=== PATIENT | male | born 1950 | race Caucasian/White ===

== ENCOUNTER → 2021-02-15 | Outpatient (CLI) | payer MEDICARE, BC ==
--- NOTE | 2021-02-15 13:41 | MM ---
Reason for exam: clinical finding. Baseline mammogram. Physical Findings: Nurse did not find any significant physical abnormalities on exam. MG 3D Diag Mammo W/Cad TAMMY Bilateral CC and MLO view(s) were taken. The breast tissue is almost entirely fat. Focal asymmetry left subareolar breast. These results were verbally communicated with the patient and result sheet given to the patient on 02/15/21. ASSESSMENT: Incomplete: need additional imaging evaluation, BI-RAD 0 RECOMMENDATION: Ultrasound of the left breast.
--- NOTE | 2021-02-15 13:46 | USB ---
Reason for exam: additional evaluation requested from abnormal screening. US Breast Limited LT Left limited breast ultrasound including focal area of concern, retroareolar and axilla demonstrates a 1.8cm hypoechoic lesion at the retroareolar posterior nipple, most likely gynecomastia. These results were verbally communicated with the patient and result sheet given to the patient on 02/15/21. ASSESSMENT: Benign, BI-RAD 2 RECOMMENDATION: Clinical management of the left breast. Manage patient on a clinical basis. Return to imaging as clinically indicated.
== END | disposition home or self-care (01) ==
LOC: RADMAMWWP 10:19
PROVIDERS: ATTEND Family Medicine
DX: N64.89 Other specified disorders of breast (principal)
CPT/HCPCS: 77066; 76642; G0279; 77062

== ENCOUNTER 2022-05-10 09:32 | Observation (INO) | payer MEDICARE, BC ==
[2022-05-10] MEDS ORDERED: ASPIRIN 81 MG PO STA (09:57)
[2022-05-10] MEDS ORDERED: NITROGLYCERIN OINT 1 INCH/GM PACKET TOPICAL STA (09:57)
--- NOTE | 2022-05-10 10:01 | ED ---
General Adult HPI - General Chief complaint: Shortness of Breath Stated complaint: EWELINA Time Seen by Provider: 05/10/22 09:45 Source: patient, RN notes reviewed, old records reviewed Mode of arrival: wheelchair Limitations: no limitations - History of Present Illness Initial comments: This is a 71-year-old male with a past medical history significant for bypass surgery, hypertension and high cholesterol. Patient states last night he started having central chest pain and shortness of breath. Patient states that now he is mildly short of breath and still has chest pain but it seems to be only with deep breathing at this time. Patient states last night the chest pain was constant and it was a heaviness sensation. Patient denies any fever chills or cough. Patient denies any swelling to the legs or calf tenderness. Patient denies any palpitation. Patient denies any lightheadedness or dizziness per patient denies headache patient denies numbness weakness. Patient denies any abdominal pain. Patient denies nausea vomiting. Patient denies any radiation of the pain. Patient denies any diaphoretic episodes. - Related Data Home Medications Medication Instructions Recorded Confirmed Ascorbic Acid [Vitamin C] 1,000 mg PO PC-BRKFST 05/10/22 05/10/22 Cholecalciferol [Vitamin D3 (25 25 mcg PO PC-BRKFST 05/10/22 05/10/22 Mcg = 1000 Iu)] Ginkgo Biloba [place] Extract [Ginkgo 125 mg PO PC-BRKFST 05/10/22 05/10/22 Biloba] Metoprolol Succinate (ER) [Toprol 50 mg PO PC-BRKFST 05/10/22 05/10/22 Xl] Multivitamins, Thera [Multivitamin 1 tab PO PC-BRKFST 05/10/22 05/10/22 (formulary)] Pravastatin Sodium [Pravachol] 20 mg PO HS 05/10/22 05/10/22 Ubidecarenone [Coenzyme Q10] 200 mg PO PC-BRKFST 05/10/22 05/10/22 Zinc Gluconate [Zinc] 50 mg PO PC-BRKFST 05/10/22 05/10/22 Allergies Allergy/AdvReac Type Severity Reaction Status Date / Time Penicillins Allergy Joint Verified 05/10/22 10:54 Swelling Review of Systems ROS Statement: Those systems with pertinent positive or pertinent negative responses have been documented in the HPI. ROS Other: All systems not noted in ROS Statement are negative. Past Medical History Past Medical History: Asthma, Coronary Artery Disease (CAD), Hyperlipidemia, Hypertension Additional Past Medical History / Comment(s): aortic aneurysm, scoliosis, lyme disease History of Any Multi-Drug Resistant Organisms: None Reported Past Surgical History: Back Surgery, Coronary Bypass/CABG Past Psychological History: No Psychological Hx Reported Past Alcohol Use History: None Reported Past Drug Use History: None Reported General Exam - General Exam Comments Initial Comments: GENERAL: Patient is well-developed and well-nourished. Patient is nontoxic and well- hydrated and is in mild distress. ENT: Neck is soft and supple. No significant lymphadenopathy is noted. Oropharynx is clear. Moist mucous membranes. Neck has full range of motion without eliciting any pain. EYES: The sclera were anicteric and conjunctiva were pink and moist. Extraocular movements were intact and pupils were equal round and reactive to light. Eyelids were unremarkable. PULMONARY: Unlabored respirations. Good breath sounds bilaterally. No audible rales rhonchi or wheezing was noted. CARDIOVASCULAR: There is a regular rate and rhythm without any murmurs gallops or rubs. ABDOMEN: Soft and nontender with normal bowel sounds. SKIN: Skin is clear with no lesions or rashes and otherwise unremarkable. NEUROLOGIC: Patient is alert and oriented x3. Cranial nerves II through XII are grossly intact. Motor and sensory are also intact. Normal speech, volume and content. Symmetrical smile. MUSCULOSKELETAL: Normal extremities with adequate strength and full range of motion. No lower extremity swelling or edema. No calf tenderness. LYMPHATICS: No significant lymphadenopathy is noted PSYCHIATRIC: Normal psychiatric evaluation. Limitations: no limitations Course Vital Signs 05/10/22 05/10/22 05/10/22 09:33 09:50 09:54 Temperature 97.9 F Pulse Rate 100 96 Pulse Rate [ 92 Mail Inserter ] Respiratory 22 18 Rate Blood Pressure 118/78 123/83 O2 Sat by Pulse 96 96 Oximetry Medical Decision Making - Medical Decision Making EKG shows sinus rhythm with occasional PVC at 91 bpm IL interval 292 QRS is 94 QT interval 355 QTC is 44. Patient's EKG shows ST segment elevation in inferior leads II, III, and F aVF. Currently patient is having no chest pain unless he takes a deep breath I spoke with Dr. Madrid about the EKG and he stated he would see the patient emergency department. Chest x-ray shows no acute abnormality. I was sound physician's and he agreed to admit the patient I wrote admitting orders and consult cardiology - Lab Data Result diagrams: 05/10/22 10:11 05/10/22 10:10 Lab Results 05/10/22 05/10/22 05/10/22 Range/Units 10:10 10:10 10:10 WBC (3.8-10.6) k/uL RBC (4.30-5.90) m/uL Hgb (13.0-17.5) gm/dL Hct (39.0-53.0) % MCV (80.0-100.0) fL MCH (25.0-35.0) pg MCHC (31.0-37.0) g/dL RDW (11.5-15.5) % Plt Count (150-450) k/uL MPV Neutrophils % % Lymphocytes % % Monocytes % % Eosinophils % % Basophils % % Neutrophils # (1.3-7.7) k/uL Lymphocytes # (1.0-4.8) k/uL Monocytes # (0-1.0) k/uL Eosinophils # (0-0.7) k/uL Basophils # (0-0.2) k/uL PT 10.3 (9.0-12.0) sec INR 0.9 (<1.2) APTT 28.2 (22.0-30.0) sec D-Dimer 0.43 (<0.60) mg/L FEU Sodium 134 L (137-145) mmol/L Potassium 4.2 (3.5-5.1) mmol/L Chloride 101 (98-107) mmol/L Carbon Dioxide 22 (22-30) mmol/L Anion Gap 11 mmol/L BUN 13 (9-20) mg/dL Creatinine 0.71 (0.66-1.25) mg/dL Est GFR (CKD-EPI)AfAm >90 (>60 ml/min/1.73 sqM) Est GFR (CKD-EPI)NonAf >90 (>60 ml/min/1.73 sqM) Glucose 146 H (74-99) mg/dL Calcium 9.1 (8.4-10.2) mg/dL Magnesium 1.9 (1.6-2.3) mg/dL Total Bilirubin 1.0 (0.2-1.3) mg/dL AST 26 (17-59) U/L ALT 19 (4-49) U/L Alkaline Phosphatase 64 (38-126) U/L Troponin I <0.012 (0.000-0.034) ng/mL Total Protein 6.9 (6.3-8.2) g/dL Albumin 4.3 (3.5-5.0) g/dL Lipase 45 (23-300) U/L 05/10/22 Range/Units 10:11 WBC 14.8 H (3.8-10.6) k/uL RBC 4.84 (4.30-5.90) m/uL Hgb 15.3 (13.0-17.5) gm/dL Hct 46.8 (39.0-53.0) % MCV 96.6 (80.0-100.0) fL MCH 31.7 (25.0-35.0) pg MCHC 32.8 (31.0-37.0) g/dL RDW 12.6 (11.5-15.5) % Plt Count 183 (150-450) k/uL MPV 8.2 Neutrophils % 78 % Lymphocytes % 14 % Monocytes % 5 % Eosinophils % 1 % Basophils % 0 % Neutrophils # 11.6 H (1.3-7.7) k/uL Lymphocytes # 2.1 (1.0-4.8) k/uL Monocytes # 0.8 (0-1.0) k/uL Eosinophils # 0.2 (0-0.7) k/uL Basophils # 0.0 (0-0.2) k/uL PT (9.0-12.0) sec INR (<1.2) APTT (22.0-30.0) sec D-Dimer (<0.60) mg/L FEU Sodium (137-145) mmol/L Potassium (3.5-5.1) mmol/L Chloride (98-107) mmol/L Carbon Dioxide (22-30) mmol/L Anion Gap mmol/L BUN (9-20) mg/dL Creatinine (0.66-1.25) mg/dL Est GFR (CKD-EPI)AfAm (>60 ml/min/1.73 sqM) Est GFR (CKD-EPI)NonAf (>60 ml/min/1.73 sqM) Glucose (74-99) mg/dL Calcium (8.4-10.2) mg/dL Magnesium (1.6-2.3) mg/dL Total Bilirubin (0.2-1.3) mg/dL AST (17-59) U/L ALT (4-49) U/L Alkaline Phosphatase (38-126) U/L Troponin I (0.000-0.034) ng/mL Total Protein (6.3-8.2) g/dL Albumin (3.5-5.0) g/dL Lipase (23-300) U/L Disposition Clinical Impression: Chest pain Disposition: ADMITTED IP TO THIS HOSP Referrals: Steve Hsieh DO [Primary Care Provider] - 1-2 days Time of Disposition: 11:16
[2022-05-10 10:20] LABS: Basophils % (A) 0 %; Eosinophils # (A) 0.2 k/uL (0-0.7); Eosinophils % (A) 1 %; HCT 46.8 % (39.0-53.0); HGB 15.3 gm/dL (13.0-17.5); Lymphocytes # (A) 2.1 k/uL (1.0-4.8); Lymphocytes % (A) 14 %; MCH 31.7 pg (25.0-35.0); MCHC 32.8 g/dL (31.0-37.0); MCV 96.6 fL (80.0-100.0); Mean Platelet Volume 8.2; Monocytes # (A) 0.8 k/uL (0-1.0); Monocytes % (A) 5 %; Neutrophils # (A) 11.6 k/uL (1.3-7.7); Neutrophils % (A) 78 %; Platelet Count 183 k/uL (150-450); RBC 4.84 m/uL (4.30-5.90); RDW 12.6 % (11.5-15.5); WBC 14.8 k/uL (3.8-10.6)
[2022-05-10 10:32] LABS: ALT 19 U/L (4-49); African American GFR (CKD) >90 (>60 ml/min/1.73 sqM); Albumin 4.3 g/dL (3.5-5.0); Anion Gap 11 mmol/L; Blood Urea Nitrogen 13 mg/dL (9-20); Calcium 9.1 mg/dL (8.4-10.2); Carbon Dioxide 22 mmol/L (22-30); Chloride 101 mmol/L (98-107); Glucose 146 mg/dL (74-99); Lipase 45 U/L (23-300); Non-African American GFR(CKD) >90 (>60 ml/min/1.73 sqM); Sodium 134 mmol/L (137-145); Total Protein 6.9 g/dL (6.3-8.2)
--- NOTE | 2022-05-10 10:36 | XR ---
EXAMINATION TYPE: XR chest 2V DATE OF EXAM: 05/10/2022 10:27 AM COMPARISON: None TECHNIQUE: XR chest 2V Frontal and lateral views of the chest. CLINICAL INDICATION:Male, 71 years old with history of Chest Pain; FINDINGS: Lungs/Pleura: Streaky opacities in the left lung base. There is no evidence of pleural effusion, foca l consolidation, or pneumothorax. Pulmonary vascularity: Unremarkable. Heart/mediastinum: Cardiomediastinal silhouette is enlarged and stable. Musculoskeletal: No acute osseous pathology. Midline sternotomy wires are noted. Scoliosis changes to the spine. IMPRESSION: Left lower lobe hazy opacities felt to represent atelectasis. No obvious acute process.
[2022-05-10 10:39] LABS: INR 0.9 (<1.2); Partial Thromboplastin Time 28.2 sec (22.0-30.0); Prothrombin Time 10.3 sec (9.0-12.0)
[2022-05-10 10:42] LABS: Potassium 4.2 mmol/L (3.5-5.1)
[2022-05-10 10:43] LABS: AST 26 U/L (17-59); Alkaline Phosphatase 64 U/L (38-126); Magnesium 1.9 mg/dL (1.6-2.3)
[2022-05-10] MEDS ORDERED: NITROGLYCERIN SL TABS 0.4 MG TAB SUBLINGUAL PRN (11:16)
[2022-05-10] MEDS ORDERED: NITROGLYCERIN OINT 1 INCH/GM PACKET TOPICAL SCH (12:00)
--- NOTE | 2022-05-10 12:48 | P.CRDCN ---
History of Present Illness Consult date: 05/10/22 History of present illness: HISTORY OF PRESENT ILLNESS: This is a 71 year old male with a past medical history significant for coronary artery disease with previous CABG (BARTLETT to LAD) and PCI of RCA, hypertension, and hyperlipidemia. Patient follows in the office with Dr. Whitmore, but is now scheduled to see Dr. Kumar in June. We have been asked to see the patient in consultation for chest pain. Patient examined at the bedside. Patient states he began having chest pain yesterday. He points to the epigastric region when asked where his pain is. He reports having Kielbasa and sauerkraut yesterday for dinner. He reports feeling gassy. He denies shortness of breath. Vital signs are currently stable. * EKG reveals sinus mechanism with early repolarization in inferior leads. * Chest xray left lower lobe hazy opacities felt to represent atelectasis. * Laboratory data: WBC 14.8. Hemoglobin 15.3. Platelet count 183. D-dimer 0.43. Sodium 134. Potassium 4.2. BUN 13. Creatinine 0.71. Troponin negative 1. * Current home cardiac medications include metoprolol succinate 50 mg daily and Pravachol 20 mg at night * Most recent echocardiogram obtained in May 2020 revealed ejection fraction 55%, mild tricuspid regurgitation, mild mitral regurgitation * Patient underwent Cardiolite stress test in April 2020 revealing probably normal perfusion study with a mild fixed defect in the anterior wall most probably secondary to soft tissue attenuation though previous small subendocardial NV cannot be excluded. REVIEW OF SYSTEMS: At the time of my exam: CONSTITUTIONAL: Denies fever or chills. HEENT: Denies blurred vision, vision changes, or eye pain. Denies hemoptysis CARDIOVASCULAR: Denies chest pain. Denies orthopnea. Denies PND. Denies palpitations RESPIRATORY: Denies shortness of breath. GASTROINTESTINAL: Denies abdominal pain. Denies nausea or vomiting. HEMATOLOGIC: Denies bleeding disorders. GENITOURINARY: Denies any blood in urine. SKIN: Denies pruitis. Denies rash. PHYSICAL EXAM: VITAL SIGNS: Reviewed. GENERAL: Well-developed in no acute distress. HEENT: Head is normocephalic. Pupils are equal, round. Sclerae anicteric. Mucous membranes of the mouth are moist. Neck supple. No JVD or thyromegaly LUNGS: Respirations even and unlabored. Lungs essentially clear to auscultation bilaterally. HEART: Regular rate and rhythm. S1 and S2 heard. + Systolic murmur ABDOMEN: Soft. Nondistended. Nontender. EXTREMITIES: Normal range of motion. No clubbing or cyanosis. Peripheral pulses intact. No lower extremity edema NEUROLOGIC: Awake and alert. Oriented x 3. ASSESSMENT: Epigastric pain Coronary artery disease with previous CABG (BARTLETT to LAD) and PCI to RCA Hypertension Hyperlipidemia History of AAA Asthma Tobacco dependence, patient reports smoking a pipe daily PLAN: Trend troponins Resume home cardiac medications Begin aspirin 81mg daily Check lipid panel Obtain 2D echo to assess cardiac structure and function Obtain abdominal US to evaluate AAA Further recommendations pending patient course Nurse practitioner note has been reviewed by physician. Signing provider agrees with the documented findings, assessment, and plan of care. Past Medical History Past Medical History: Asthma, Coronary Artery Disease (CAD), Hyperlipidemia, Hypertension Additional Past Medical History / Comment(s): aortic aneurysm, scoliosis, lyme disease History of Any Multi-Drug Resistant Organisms: None Reported Past Surgical History: Back Surgery, Coronary Bypass/CABG Past Psychological History: No Psychological Hx Reported Past Alcohol Use History: None Reported Past Drug Use History: None Reported Medications and Allergies Home Medications Medication Instructions Recorded Confirmed Type Ascorbic Acid [Vitamin C] 1,000 mg PO -BRKFST 05/10/22 05/10/22 History Cholecalciferol [Vitamin D3 (25 25 mcg PO PC-BRKFST 05/10/22 05/10/22 History Mcg = 1000 Iu)] Ginkgo Biloba [place] Extract [Ginkgo 125 mg PO PC-BRKFST 05/10/22 05/10/22 History Biloba] Metoprolol Succinate (ER) [Toprol 50 mg PO PC-BRKFST 05/10/22 05/10/22 History Xl] Multivitamins, Thera [Multivitamin 1 tab PO PC-BRKFST 05/10/22 05/10/22 History (formulary)] Pravastatin Sodium [Pravachol] 20 mg PO HS 05/10/22 05/10/22 History Ubidecarenone [Coenzyme Q10] 200 mg PO PC-BRKFST 05/10/22 05/10/22 History Zinc Gluconate [Zinc] 50 mg PO -BRKFST 05/10/22 05/10/22 History Allergies Allergy/AdvReac Type Severity Reaction Status Date / Time Penicillins Allergy Joint Verified 05/10/22 10:54 Swelling Physical Exam Vitals: Vital Signs Temp Pulse Pulse Resp BP Pulse Ox 05/10/22 11:23 86 18 137/83 95 05/10/22 09:54 96 18 123/83 96 05/10/22 09:50 92 05/10/22 09:33 97.9 F 100 22 118/78 96 Intake and Output 05/09/22 05/10/22 05/10/22 22:59 06:59 14:59 Other: Weight 117.027 kg Results 05/10/22 10:11 05/10/22 10:10 Cardiac Enzymes 05/10/22 05/10/22 Range/Units 10:10 10:10 AST 26 (17-59) U/L Troponin I <0.012 (0.000-0.034) ng/mL Coagulation 05/10/22 Range/Units 10:10 PT 10.3 (9.0-12.0) sec APTT 28.2 (22.0-30.0) sec CBC 05/10/22 Range/Units 10:11 WBC 14.8 H (3.8-10.6) k/uL RBC 4.84 (4.30-5.90) m/uL Hgb 15.3 (13.0-17.5) gm/dL Hct 46.8 (39.0-53.0) % Plt Count 183 (150-450) k/uL Comprehensive Metabolic Panel 05/10/22 Range/Units 10:10 Sodium 134 L (137-145) mmol/L Potassium 4.2 (3.5-5.1) mmol/L Chloride 101 (98-107) mmol/L Carbon Dioxide 22 (22-30) mmol/L BUN 13 (9-20) mg/dL Creatinine 0.71 (0.66-1.25) mg/dL Glucose 146 H (74-99) mg/dL Calcium 9.1 (8.4-10.2) mg/dL AST 26 (17-59) U/L ALT 19 (4-49) U/L Alkaline Phosphatase 64 (38-126) U/L Total Protein 6.9 (6.3-8.2) g/dL Albumin 4.3 (3.5-5.0) g/dL Current Medications Generic Name Dose Route Start Last Admin Trade Name Freq PRN Reason Stop Dose Admin Aspirin 81 mg 05/11/22 09:00 Aspirin 81 Mg PO DAILY SUJEY Nitroglycerin 0.4 mg 05/10/22 11:16 Nitroglycerin Sl Tabs 0.4 Mg Tab SUBLINGUAL Q5M PRN Chest Pain Intake and Output 05/09/22 05/10/22 05/10/22 22:59 06:59 14:59 Other: Weight 117.027 kg Patient Weight 05/11/22 06:59 Weight 117.027 kg 05/10/22 10:11 05/10/22 10:10
--- NOTE | 2022-05-10 13:58 | US ---
EXAMINATION TYPE: US duplex aorta DATE OF EXAM: 05/10/2022 COMPARISON: NONE CLINICAL HISTORY: hx of AAA. TECHNIQUE: Multiple sonographic images of the abdominal aorta are obtained. FINDINGS: A scale, color Doppler, spectral Doppler imaging performed of the visualized portions of th e abdominal aorta EXAM MEASUREMENTS: Abdominal Aorta: Proximal: 2.4cm Mid: 2.2cm Distal: obscured by overlying bowel gas Bifurcation: obscured by overlying bowel gas CAREER PLACEMENT SERVICES COUNSELOR NOTES: Patient of large body habitus with extensive overlying bowel gas, technically difficult limited study . IMPRESSION: No evident abdominal aortic aneurysm in the visualized portions of the abdominal aorta
[2022-05-10] MEDS ORDERED: IPRATROPIUM-ALBUTEROL 3 ML NEB INHALATION PRN (17:21)
--- NOTE | 2022-05-10 17:32 | CA ---
Transthoracic Echo Report Name: Issac Vasquez Age: 71 Gender: M : 1950 Exam Date: 05/10/2022 13:25 Exam Location: [facility] Ht (in): 72 Wt (lb): 248 Ordering Physician: Gertrude Nova Attending/Referring Phys: [id number], [employer] Associate Jennifer Ascencio RDCS Procedure CPT: Indications: LV function Cardiac Hx: Technical Quality: Technically difficult study Contrast 1: Lumason Total Dose (mL): 3 Contrast 2: Total Dose (mL): MEASUREMENTS (Male / Female) Normal Values 2D ECHO LV Diastolic Diameter PLAX 4.0 cm 4.2 - 5.9 / 3.9 - 5.3 cm LV Systolic Diameter PLAX 2.5 cm IVS Diastolic Thickness 1.3 cm 0.6 - 1.0 / 0.6 - 0.9 cm LVPW Diastolic Thickness 1.7 cm 0.6 - 1.0 / 0.6 - 0.9 cm LV Relative Wall Thickness 0.7 RV Internal Dim ED PLAX 2.7 cm M-MODE Aortic Root Diameter MM 3.8 cm LA Systolic Diameter MM 3.3 cm LA Ao Ratio MM 0.9 AV Cusp Separation MM 2.4 cm DOPPLER MV Area PHT 4.6 cm??? Mitral E Point Velocity 58.7 cm/s Mitral A Point Velocity 48.4 cm/s Mitral E to A Ratio 1.2 MV Deceleration Time 165.1 ms MV E' Velocity 5.6 cm/s Mitral E to MV E' Ratio 10.5 FINDINGS Left Ventricle Left ventricular ejection fraction is estimated at 50-55 %. Septal Hypokinesis. Mildly increased left ventricular wall thickness. Right Ventricle Normal right ventricular size and function. Right Atrium Normal right atrial size. Left Atrium Normal left atrial size. Mitral Valve Structurally normal mitral valve. Mild mitral regurgitation. Aortic Valve Trileaflet aortic valve. Aortic valve sclerosis. Tricuspid Valve Structurally normal tricuspid valve. Pulmonic Valve Structurally normal pulmonic valve. Pericardium Normal pericardium. Aorta Normal size aortic root and proximal ascending aorta. CONCLUSIONS Normal LV function Septal hypokinesis Mild mitral regurgitation Previewed by: Dr. Yemi Coleman MD (Electronically Signed) Final Date: 10 May 2022 17:31
--- NOTE | 2022-05-10 17:40 | P.HPIM ---
History of Present Illness H&P Date: 05/10/22 This is a pleasant [age]-year-old male who presents to [facility] with sudden onset substernal chest pain shortness of breath last night. At time of exam patient was resting comfortably in bed in denied chest pain at that time. Patient states that he does get mild exertional dyspnea from time to time which is his normal state. Patient denies diaphoresis, fever, chills, nausea, vomiting, diarrhea, or cough. Patient was concerned about the chest heaviness as a result he came in for further evaluation hospital. Patient is concerned because he continues to have chest pain especially with inspiration. Patient does have a past medical history of coronary artery disease with bypass, hypertension, cerebral ataxia, and hyperlipidemia. Labs were significant for a leukocytosis of 4.8, sodium of 134, glucose of 146 EKG was abnormal and was determined by cardiology to be early polarization Cardiology was placed on consult Chest x-ray did reveal left lower lobe hazy opacities felt to represent atelectasis no obvious acute process. Review of Systems A 14 point review systems was assessed patient was only positive for those pertinent in HPI Past Medical History Past Medical History: Asthma, Coronary Artery Disease (CAD), Hyperlipidemia, Hypertension Additional Past Medical History / Comment(s): aortic aneurysm, scoliosis, lyme disease History of Any Multi-Drug Resistant Organisms: None Reported Past Surgical History: Back Surgery, Coronary Bypass/CABG Past Psychological History: No Psychological Hx Reported Past Alcohol Use History: None Reported Past Drug Use History: None Reported Medications and Allergies Home Medications Medication Instructions Recorded Confirmed Type Ascorbic Acid [Vitamin C] 1,000 mg PO PC-BRKFST 05/10/22 05/10/22 History Cholecalciferol [Vitamin D3 (25 25 mcg PO PC-BRKFST 05/10/22 05/10/22 History Mcg = 1000 Iu)] Ginkgo Biloba [place] Extract [Ginkgo 125 mg PO PC-BRKFST 05/10/22 05/10/22 History Biloba] Metoprolol Succinate (ER) [Toprol 50 mg PO PC-BRKFST 05/10/22 05/10/22 History Xl] Multivitamins, Thera [Multivitamin 1 tab PO PC-BRKFST 05/10/22 05/10/22 History (formulary)] Pravastatin Sodium [Pravachol] 20 mg PO HS 05/10/22 05/10/22 History Ubidecarenone [Coenzyme Q10] 200 mg PO PC-BRKFST 05/10/22 05/10/22 History Zinc Gluconate [Zinc] 50 mg PO PC-BRKFST 05/10/22 05/10/22 History Allergies Allergy/AdvReac Type Severity Reaction Status Date / Time Penicillins Allergy Joint Verified 05/10/22 10:54 Swelling Physical Exam Osteopathic Statement: *. No significant issues noted on an osteopathic structural exam other than those noted in the History and Physical/Consult. Vitals: Vital Signs Temp Pulse Pulse Resp BP Pulse Ox 05/10/22 15:00 96 18 141/81 95 05/10/22 11:23 86 18 137/83 95 05/10/22 09:54 96 18 123/83 96 05/10/22 09:50 92 05/10/22 09:33 97.9 F 100 22 118/78 96 Intake and Output 05/10/22 05/10/22 05/10/22 06:59 14:59 22:59 Other: Weight 117.027 kg General: [non toxic], [no distress], [appears at stated age] Derm: [warm], [dry] Head: [atraumatic], [normocephalic], [symmetric] Eyes: [EOMI], [no lid lag], [anicteric sclera] Mouth: [no lip lesion], [mucus membranes moist] Cardiovascular: [S1S2 reg], [no murmur], [positive posterior tibial pulse bilateral], Lungs: [CTA bilateral], [no rhonchi, no rales] , [no accessory muscle use] Abdominal: [soft], [ nontender to palpation], [no guarding], [no appreciable organomegaly] Ext: [no gross muscle atrophy], [no edema], [no contractures] Neuro: [ CN II-XI grossly intact], [no focal neuro deficits] Psych: [Alert], [oriented], [appropriate affect] Results CBC & Chem 7: 05/10/22 10:11 05/10/22 10:10 Labs: Abnormal Lab Results - Last 24 Hours (Table) 05/10/22 05/10/22 Range/Units 10:10 10:11 WBC 14.8 H (3.8-10.6) k/uL Neutrophils # 11.6 H (1.3-7.7) k/uL Sodium 134 L (137-145) mmol/L Glucose 146 H (74-99) mg/dL Assessment and Plan Assessment: Chest pain with inspiration Cardiac enzymes 3 were within normal limits EKG insignificant per cardiology obtain a CT of the chest to further investigate the abnormal chest x-ray with leukocytosis Await 2-D echo Cardiology recommendations appreciated Duo nebs when necessary Telemetry Leukocytosis likely reactive Trend CBC If white blood cell count continues to elevate well and antibiotics in the morning Check UA Check blood cultures History of hypertension Resume metoprolol History of hyperlipidemia Resume aspirin and statin History of cerebral ataxia PT OT BPH Add Flomax History of CAD with coronary artery bypass surgery Management as stated above Patient is a full code Disposition home with home care Anticipated day of discharge greater than 2 midnight stay Greater than 40 minutes spent coordinating care documenting and counseling patient Time with Patient: Greater than 30
--- NOTE | 2022-05-10 18:37 | CT ---
EXAMINATION TYPE: CT angio chest CT DLP: 606.1 mGycm, Automated exposure control for dose reduction was used. DATE OF EXAM: 05/10/2022 6:29 PM COMPARISON: Chest radiograph from same day. CLINICAL INDICATION:Male, 71 years old with history of chest pain; TECHNIQUE/CONTRAST: CTA scan of the thorax is performed with IV Contrast, patient injected with 74cc mL of Isovue 300, pu lmonary embolism protocol. MIP images are created and reviewed. FINDINGS: Pulmonary Artery: There is no evidence for a filling defect within the pulmonary vasculature to sugge st acute pulmonary embolism. The pulmonary artery is of normal size. Lungs/Pleura: No evidence of focal consolidation, pleural effusion or pneumothorax. Mosaic patchy att enuation within the left upper lobe. Right middle lobe scarring and atelectasis. Bilateral lower lobe subsegmental atelectasis. No concerning pulmonary nodules or mass. Airway: Large airways are patent. Heart: Mildly enlarged. Trace pericardial fluid. Vasculature: No evidence of aortic aneurysm. Mediastinum: No gross evidence of adenopathy. Post surgical changes from CABG. Musculoskeletal: No acute osseous abnormalities. Median sternotomy wires. Soft Tissues: No axillary adenopathy. Bilateral mild gynecomastia. Lower neck: No significant findings. Upper Abdomen: Diffuse low-attenuation to the liver parenchyma. Postcholecystectomy. Small hiatal her micheal. IMPRESSION: 1. No evidence of pulmonary embolism. 2. Mosaic subtle groundglass attenuation in the left upper lobe. Etiologies include air trapping vers us atypical pneumonia versus atelectasis.
[2022-05-10] MEDS: TAMSULOSIN 0.4 MG CAP.ER.24H PO SCH (20:04)
[2022-05-10] MEDS: PANTOPRAZOLE 40 MG TABLET PO SCH (20:04)
[2022-05-10] MEDS: HEPARIN SODIUM,PORCINE/PF 5,000 UNIT/0.5 ML SYRINGE SQ SCH ×2 (20:05→20:06)
[2022-05-10] MEDS ORDERED: PRAVASTATIN SODIUM 40 MG TAB PO SCH (21:00)
[2022-05-10] MEDS ORDERED: PRAVASTATIN SODIUM 20 MG TAB PO SCH (21:00)
[2022-05-11] MEDS ORDERED: DOBUTamine DRIP for NUC MED 500 MG/250 ML BAG IV ONE (08:00)
[2022-05-11] MEDS ORDERED: METOPROLOL SUCCINATE (ER) 50 MG TAB.ER.24H PO SCH (08:30)
[2022-05-11 08:49] LABS: Basophils % (A) 0 %; Eosinophils % (A) 0 %; HCT 43.7 % (39.0-53.0); HGB 14.2 gm/dL (13.0-17.5); Lymphocytes # (A) 1.8 k/uL (1.0-4.8); Lymphocytes % (A) 14 %; MCHC 32.5 g/dL (31.0-37.0); MCV 98.5 fL (80.0-100.0); Mean Platelet Volume 8.7; Monocytes # (A) 0.8 k/uL (0-1.0); Monocytes % (A) 6 %; Neutrophils # (A) 10.3 k/uL (1.3-7.7); Neutrophils % (A) 78 %; Platelet Count 151 k/uL (150-450); RBC 4.44 m/uL (4.30-5.90); RDW 12.4 % (11.5-15.5); WBC 13.2 k/uL (3.8-10.6)
[2022-05-11 08:57] LABS: ALT 15 U/L (4-49); AST 18 U/L (17-59); African American GFR (CKD) >90 (>60 ml/min/1.73 sqM); Alkaline Phosphatase 71 U/L (38-126); Anion Gap 13 mmol/L; Blood Urea Nitrogen 10 mg/dL (9-20); Calcium 8.3 mg/dL (8.4-10.2); Carbon Dioxide 23 mmol/L (22-30); Chloride 99 mmol/L (98-107); Glucose 136 mg/dL (74-99); Magnesium 1.9 mg/dL (1.6-2.3); Non-African American GFR(CKD) >90 (>60 ml/min/1.73 sqM); Potassium 3.9 mmol/L (3.5-5.1); Sodium 135 mmol/L (137-145); Total Protein 6.5 g/dL (6.3-8.2)
[2022-05-11] MEDS ORDERED: ASPIRIN 81 MG PO SCH (09:00)
[2022-05-11] MEDS ORDERED: ASPIRIN 325 MG TAB PO SCH (09:00)
[2022-05-11] MEDS: TAMSULOSIN 0.4 MG CAP.ER.24H PO SCH (09:46)
[2022-05-11] MEDS: PANTOPRAZOLE 40 MG TABLET PO SCH (09:46)
[2022-05-11] MEDS: HEPARIN SODIUM,PORCINE/PF 5,000 UNIT/0.5 ML SYRINGE SQ SCH ×2 (09:46→14:13)
[2022-05-11 09:52] VITALS: RESP 16
[2022-05-11] MEDS ORDERED: DOBUTamine DRIP for NUC MED 500 MG in DEXTROSE/WATER 1 250ML.BAG IV PRN (10:13)
[2022-05-11 11:19] VITALS: BP 124/70; PULSE 94; TEMP 98.8
--- NOTE | 2022-05-11 13:01 | P.PN ---
Subjective HISTORY OF PRESENT ILLNESS: This is a 71 year old male with a past medical history significant for coronary artery disease with previous CABG (BARTLETT to LAD) and PCI of RCA, hypertension, and hyperlipidemia. Patient follows in the office with Dr. Whitmore, but is now scheduled to see Dr. Kumar in June. We have been asked to see the patient in consultation for chest pain. Patient examined at the bedside. Patient states he began having chest pain yesterday. He points to the epigastric region when asked where his pain is. He reports having Kielbasa and sauerkraut yesterday for dinner. He reports feeling gassy. He denies shortness of breath. Vital signs are currently stable. * EKG reveals sinus mechanism with early repolarization in inferior leads. * Chest xray left lower lobe hazy opacities felt to represent atelectasis. * Laboratory data: WBC 14.8. Hemoglobin 15.3. Platelet count 183. D-dimer 0.43. Sodium 134. Potassium 4.2. BUN 13. Creatinine 0.71. Troponin negative 1. * Current home cardiac medications include metoprolol succinate 50 mg daily and Pravachol 20 mg at night * Most recent echocardiogram obtained in May 2020 revealed ejection fraction 55%, mild tricuspid regurgitation, mild mitral regurgitation * Patient underwent Cardiolite stress test in April 2020 revealing probably normal perfusion study with a mild fixed defect in the anterior wall most probably secondary to soft tissue attenuation though previous small subendocardial NV cannot be excluded. 05/11/2022 Patient examined this morning at the bedside. Patient denies chest pain or pressure. He denies shortness of breath. Troponins are negative 3. Echocardiogram completed revealing ejection fraction 50-55% with septal hypokinesis and mild mitral regurgitation. PHYSICAL EXAM: VITAL SIGNS: Reviewed. GENERAL: Well-developed in no acute distress. HEENT: Head is normocephalic. Pupils are equal, round. Sclerae anicteric. Mucous membranes of the mouth are moist. Neck supple. No JVD or thyromegaly LUNGS: Respirations even and unlabored. Lungs essentially clear to auscultation bilaterally. HEART: Regular rate and rhythm. S1 and S2 heard. + Systolic murmur ABDOMEN: Soft. Nondistended. Nontender. EXTREMITIES: Normal range of motion. No clubbing or cyanosis. Peripheral pulses intact. No lower extremity edema NEUROLOGIC: Awake and alert. Oriented x 3. ASSESSMENT: Epigastric pain Coronary artery disease with previous CABG (BARTLETT to LAD) and PCI to RCA Hypertension Hyperlipidemia History of AAA Asthma Tobacco dependence, patient reports smoking a pipe daily PLAN: Continue current cardiac medications Patient to undergo dobutamine stress echo today. If negative, he may be discharged home from a cardiac standpoint Nurse practitioner note has been reviewed by physician. Signing provider agrees with the documented findings, assessment, and plan of care. Objective - Vital Signs Vital signs: Vital Signs Temp 98.8 F 05/11/22 11:19 Pulse 94 05/11/22 11:19 Resp 16 05/11/22 11:19 BP 124/70 05/11/22 11:19 Pulse Ox 96 05/11/22 11:19 FiO2 Intake & Output 05/10/22 05/11/22 05/11/22 18:59 06:59 18:59 Intake Total 245 Output Total 300 Balance -55 Weight 117.027 kg Intake: IV 5 Invasive Line 1 5 Oral 240 Output: Urine 300 Other: Voiding Method Toilet Urinal # Voids 1 - Labs CBC & Chem 7: 05/11/22 08:04 05/11/22 08:04 Labs: Abnormal Lab Results - Last 24 Hours (Table) 05/11/22 05/11/22 Range/Units 08:04 08:04 WBC 13.2 H (3.8-10.6) k/uL Neutrophils # 10.3 H (1.3-7.7) k/uL Sodium 135 L (137-145) mmol/L Glucose 136 H (74-99) mg/dL Calcium 8.3 L (8.4-10.2) mg/dL
--- NOTE | 2022-05-11 13:21 | CA ---
Dobutamine Stress Echocardiogram Report Issac Vasquez Age: 71 Gender: M : 1950 Exam Date: 05/11/2022 11:43 Exam Location: Ordering Physician: Gertrude Nova Referring Physician: JUAN ALBERTO, Tool/Die Maker: ROBERT, Technologist: Ht (in): 76 Wt (lb): 258 Procedure CPT: Indication: CP ICD-9 Codes: Rhythm: Patient History: Cardiac Medications: Medications in past 24 hours: Contrast: Total Dose (mL): Stress Results Protocol: Peak Dose (???g/kg/min): Duration (min:sec): Atropine:(mg) Target HR: 126 Double Product: Resting HR: 88 Resting BP: 136 / 77 Peak HR: 135 Peak BP: / 84 Max Predicted HR: 148 91 % Max Predicted HR Stress Summary: BP Response: Reason for Termination: INFUSION COMPLETE Cardiac Symptoms: NO SYMPTOMS ECG Analysis Resting EKG: Normal sinus rhythm poor R-wave progression Stress EKG: Patient received intravenous dobutamine or a period of 8 and half minutes achieving 85% of predicted maximal heart rate without significant ST segment depression occasional PVCs are noted Arrhythmia: Echo Analysis Base Echo Analysis: Normal left ventricle a size atypical septal motion with normal LV function Low Echo Anaylsis: Peak Echo Analysis: Post dobutamine infusion the technically suboptimal no obvious dobutamine induced wall motion of normalities are noted Recovery Echo: MEASUREMENTS (Male/Female) Normal Values CONCLUSIONS Technically suboptimal dobutamine stress echo No significant dobutamine induced wall motion of normalities Dr. Yemi Coleman MD (Electronically Signed) Final Date: 11 May 2022 13:19
[2022-05-11] MEDS ORDERED: AZITHROMYCIN 500 MG TAB PO ONE (14:15)
[2022-05-11 15:14] LABS: Chol/HDL Ratio 2.59 Ratio; LDL Cholesterol,Calculated 84.1 mg/dL (0.0-131.0); VLDL Calculation 11.66 mg/dL (5.00-40.00)
--- NOTE | 2022-05-11 15:30 | P.DS ---
Providers Date of admission: 05/10/22 11:17 Expected date of discharge: 05/11/22 Attending physician: Daniel Pastor MD Consults: 05/10/22 11:17 Consult Physician Urgent Consulting Provider: [facility] Consult Reason/Comments: Chest pain Do you want consulting provider notified?: Yes Primary care physician: [facility] Course: Admission diagnosis: Chest pain Discharge Diagnosis: Atypical chest pain Leukocytosis likely reactive HTN controlled HLD BPH Hx of CAD with CABG This is a pleasant [age]-year-old male who presents to [facility] with sudden onset substernal chest pain shortness of breath last night. At time of exam patient was resting comfortably in bed in denied chest pain at that time. Patient states that he does get mild exertional dyspnea from time to time which is his normal state. Patient denies diaphoresis, fever, chills, nausea, vomiting, diarrhea, or cough. Patient was concerned about the chest heaviness as a result he came in for further evaluation hospital. Patient is concerned because he continues to have chest pain especially with inspiration. Patient does have a past medical history of coronary artery disease with bypass, hypertension, cerebral ataxia, and hyperlipidemia. Labs were significant for a leukocytosis of 4.8, sodium of 134, glucose of 146 EKG was abnormal and was determined by cardiology to be early polarization Cardiology was placed on consult Chest x-ray did reveal left lower lobe hazy opacities felt to represent atelectasis no obvious acute process. CTA was negative for PE however did show a septal mosaic groundglass attenuation left upper lobe as a result azithromycin was prescribed Dobutamine stress test was negative for ischemia Echocardiogram revealed a normal LV function with septal hypokinesis Physical Exam: General: [non toxic], [no distress], [appears at stated age] Derm: [warm], [dry] Head: [atraumatic], [normocephalic], [symmetric] Eyes: [EOMI], [no lid lag], [anicteric sclera] Mouth: [no lip lesion], [mucus membranes moist] Cardiovascular: [S1S2 reg], [no murmur], [positive posterior tibial pulse bilateral], Lungs: [CTA bilateral], [no rhonchi, no rales] , [no accessory muscle use] Abdominal: [soft], [ nontender to palpation], [no guarding], [no appreciable organomegaly] Ext: [no gross muscle atrophy], [no edema], [no contractures] Neuro: [ CN II-XI grossly intact], [no focal neuro deficits] Psych: [Alert], [oriented], [appropriate affect] Clinical Course: Chest pain with inspiration Cardiac enzymes 3 were within normal limits EKG insignificant per cardiology CTA negative for PE 2D Echo normal EF with septal hypokinesis Cardiology followed Dobutamine stress test negative Leukocytosis likely reactive Azithromycin added due to septal mosaic pattern and left upper lobe History of hypertension Resume metoprolol History of hyperlipidemia Resume aspirin and statin History of cerebral ataxia BPH Flomax History of CAD with coronary artery bypass surgery Management as stated above Patient is a full code Disposition home with home care Disposition: Home with home care Activity as tolerated Diet cardiac Condition fair Follow-up with PCP in 3-7 days Up with cardiology in 2 weeks Patient Condition at Discharge: Fair Plan - Discharge Summary Discharge Rx Participant: Yes New Discharge Prescriptions: New Nitroglycerin Sl Tabs [Nitrostat] 0.4 mg SUBLINGUAL Q5M PRN #30 tab PRN Reason: Chest Pain Aspirin 81 mg PO DAILY #30 tab Tamsulosin [Flomax] 0.4 mg PO PC-BRKFST #30 cap Pantoprazole [Protonix] 40 mg PO DAILY #30 tab Continue Zinc Gluconate [Zinc] 50 mg PO PC-BRKFST Multivitamins, Thera [Multivitamin (formulary)] 1 tab PO PC-BRKFST Ascorbic Acid [Vitamin C] 1,000 mg PO PC-BRKFST Ubidecarenone [Coenzyme Q10] 200 mg PO PC-BRKFST Metoprolol Succinate (ER) [Toprol XL] 50 mg PO PC-BRKFST Cholecalciferol [Vitamin D3 (25 Mcg = 1000 Iu)] 25 mcg PO PC-BRKFST Pravastatin Sodium [Pravachol] 20 mg PO HS Ginkgo Biloba [place] Extract [Ginkgo Biloba] 125 mg PO PC-BRKFST Discharge Medication List Ascorbic Acid [Vitamin C] 1,000 mg PO PC-BRKFST 05/10/22 [History] Cholecalciferol [Vitamin D3 (25 Mcg = 1000 Iu)] 25 mcg PO PC-BRKFST 05/10/22 [History] Ginkgo Biloba [place] Extract [Ginkgo Biloba] 125 mg PO PC-BRKFST 05/10/22 [History] Metoprolol Succinate (ER) [Toprol XL] 50 mg PO PC-BRKFST 05/10/22 [History] Multivitamins, Thera [Multivitamin (formulary)] 1 tab PO PC-BRKFST 05/10/22 [History] Pravastatin Sodium [Pravachol] 20 mg PO HS 05/10/22 [History] Ubidecarenone [Coenzyme Q10] 200 mg PO PC-BRKFST 05/10/22 [History] Zinc Gluconate [Zinc] 50 mg PO PC-BRKFST 05/10/22 [History] Aspirin 81 mg PO DAILY #30 tab 05/11/22 [Rx] Nitroglycerin Sl Tabs [Nitrostat] 0.4 mg SUBLINGUAL Q5M PRN #30 tab 05/11/22 [Rx] Pantoprazole [Protonix] 40 mg PO DAILY #30 tab 05/11/22 [Rx] Tamsulosin [Flomax] 0.4 mg PO PC-BRKFST #30 cap 05/11/22 [Rx] Follow up Appointment(s)/Referral(s): Steve Hsieh DO [Primary Care Provider] - 05/14/22 11:30 am (SATURDAY) Yemi Coleman MD [STAFF PHYSICIAN] - 1 Week (Offices will call with an appointment date and time.) Patient Instructions/Handouts: Chest Pain (DC), Shortness of Breath (DC) Discharge Disposition: HOME WITH HOME HEALTH SERVICES
[2022-05-12] MEDS ORDERED: AZITHROMYCIN 250 MG TAB PO SCH (09:00)
== END 2022-05-11 15:25 | disposition home health service (06) ==
LOC: EC 09:32 → 3SCARD 11:17
PROVIDERS: ADMIT Internal Medicine; ATTEND Internal Medicine
DX: R07.89 Other chest pain (principal); R07.1 Chest pain on breathing; D72.829 Elevated white blood cell count, unspecified; R94.31 Abnormal electrocardiogram [ECG] [EKG]; J45.909 Unspecified asthma, uncomplicated; E78.00 Pure hypercholesterolemia, unspecified; I10 Essential (primary) hypertension; I25.10 Atherosclerotic heart disease of native coronary artery without angina pectoris; I08.0 Rheumatic disorders of both mitral and aortic valves; M41.9 Scoliosis, unspecified; R10.13 Epigastric pain; F17.290 Nicotine dependence, other tobacco product, uncomplicated; N40.0 Benign prostatic hyperplasia without lower urinary tract symptoms; Z79.899 Other long term (current) drug therapy; Z88.0 Allergy status to penicillin; Z86.19 Personal history of other infectious and parasitic diseases; Z86.79 Personal history of other diseases of the circulatory system; Z95.1 Presence of aortocoronary bypass graft; Z86.69 Personal history of other diseases of the nervous system and sense organs; Z98.890 Other specified postprocedural states
CPT/HCPCS: 96372 ×2; 99285; 36415; 93005; 93351; 97162; 85379; 80061; 80053 ×2; 84443; 83690; 83735 ×2; 84484; 85025 ×2; 85610; 85730; 87040; 82306; 83036; 84145; 71046; 93979; 71275; G0378; C8929; J1250; Q9950; Q9967; J1644 ×2; 93306; 96374

== ENCOUNTER 2022-08-30 15:35 | Emergency (ER) | payer MEDICARE, BC ==
[2022-08-30 16:10] VITALS: TEMP 98.2
--- NOTE | 2022-08-30 16:42 | XR ---
EXAMINATION TYPE: XR chest 2V DATE OF EXAM: 08/30/2022 4:38 PM COMPARISON: Chest radiographs from 05/10/2022. TECHNIQUE: XR chest 2V Frontal and lateral views of the chest. CLINICAL INDICATION:Male, 71 years old with history of recent covid, rule out Pneumonia; FINDINGS: Lungs/Pleura: Similar airspace opacities most pronounced in the left lung base. Flattening of the mellisa phragm There is no evidence of pleural effusion or pneumothorax. There is flattening of the diaphragm with increased lucency of the lung apices, right greater than left. Pulmonary vascularity: Unremarkable. Heart/mediastinum: Cardiomediastinal silhouette is enlarged and stable. Musculoskeletal: No acute osseous pathology. Midline sternotomy wires are noted. IMPRESSION: Similar suspected chronic changes with basilar airspace opacities most pronounced on the left. COPD changes.
--- NOTE | 2022-08-30 18:09 | ED ---
URI HPI - General Chief Complaint: Upper Respiratory Infection Stated Complaint: Cough,COVID+,Sent by Urgent Care Time Seen by Provider: 08/30/22 18:06 Source: patient, RN notes reviewed Mode of arrival: ambulatory Limitations: no limitations - History of Present Illness Initial Comments: This is a well-appearing 71-year-old male who presents with complaints of persistent cough, tested positive for coronavirus 10 days ago. States was sent to the emergency room by the urgent care for possible pneumonia. He does have a history of asthma, coronary artery disease, hypertension. States smokes a pipe twice a year. He uses an unknown inhaler daily, one puff in the morning and 1 puff at night with some relief. Denies any chest pain or difficulty breathing. Denies any fevers. Did have diarrhea last week which has resolved. MD Complaint: cough Severity scale (1-10): 0 Consistency: constant Associated Symptoms: denies other symptoms - Related Data Home Medications Medication Instructions Recorded Confirmed Ascorbic Acid [Vitamin C] 1,000 mg PO -[facility] 05/10/22 05/10/22 Cholecalciferol [Vitamin D3 (25 25 mcg PO [facility] 05/10/22 05/10/22 Mcg = 1000 Iu)] Ginkgo Biloba [place] Extract [Ginkgo 125 mg PO -[facility] 05/10/22 05/10/22 Biloba] Metoprolol Succinate (ER) [Toprol 50 mg PO -[facility] 05/10/22 05/10/22 XL] Multivitamins, Thera [Multivitamin 1 tab PO -[facility] 05/10/22 05/10/22 (formulary)] Pravastatin Sodium [Pravachol] 20 mg PO HS 05/10/22 05/10/22 Ubidecarenone [Coenzyme Q10] 200 mg PO -[facility] 05/10/22 05/10/22 Zinc Gluconate [Zinc] 50 mg PO -[facility] 05/10/22 05/10/22 Previous Rx's Medication Instructions Recorded Aspirin 81 mg PO DAILY #30 tab 05/11/22 Nitroglycerin Sl Tabs [Nitrostat] 0.4 mg SUBLINGUAL Q5M PRN #30 tab 05/11/22 Pantoprazole [Protonix] 40 mg PO DAILY #30 tab 05/11/22 Tamsulosin [Flomax] 0.4 mg PO PC-BRKFST #30 cap 05/11/22 Albuterol Inhaler [Ventolin Hfa 1 - 2 puff INHALATION Q6H PRN #1 08/30/22 Inhaler] each predniSONE 50 mg PO DAILY #5 tab 08/30/22 Allergies Allergy/AdvReac Type Severity Reaction Status Date / Time Penicillins Allergy Joint Verified 08/30/22 16:10 Swelling Review of Systems ROS Statement: Those systems with pertinent positive or pertinent negative responses have been documented in the HPI. ROS Other: All systems not noted in ROS Statement are negative. Past Medical History Past Medical History: Asthma, Coronary Artery Disease (CAD), Hyperlipidemia, Hypertension Additional Past Medical History / Comment(s): aortic aneurysm, scoliosis, lyme disease History of Any Multi-Drug Resistant Organisms: None Reported Past Surgical History: Back Surgery, Coronary Bypass/CABG Past Anesthesia/Blood Transfusion Reactions: No Reported Reaction Past Psychological History: No Psychological Hx Reported Smoking Status: Never smoker Past Alcohol Use History: None Reported Past Drug Use History: None Reported General Exam Limitations: no limitations General appearance: alert, in no apparent distress Head exam: Present: atraumatic Eye exam: Absent: scleral icterus, conjunctival injection, periorbital swelling Respiratory exam: Present: normal lung sounds bilaterally. Absent: respiratory distress, wheezes, rales, rhonchi, stridor, accessory muscle use Cardiovascular Exam: Present: regular rate GI/Abdominal exam: Present: soft Psychiatric exam: Present: normal affect, normal mood Skin exam: Present: warm, dry, normal color. Absent: cyanosis, diaphoretic, petechiae, pallor Course Vital Signs 08/30/22 08/30/22 08/30/22 16:07 18:20 18:59 Temperature 98.2 F Pulse Rate 81 79 79 Respiratory 20 18 18 Rate Blood Pressure 120/77 132/79 142/76 O2 Sat by Pulse 96 97 94 L Oximetry Medical Decision Making - Medical Decision Making Patient with a history of asthma, coronary artery disease, hypertension, hyperlipidemia, aortic aneurysm, smokes a pipe twice a year. Oxygen saturation 97% on room air. Patient sent by urgent care for possible pneumonia. Tested positive for coronavirus 10 days ago. Chest X-ray interpreted by me shows no evidence of consolidation Radiologist interpretation similar suspected chronic changes with basilar airspace opacities most pronounced on the left. COPD changes. Patient was given a prescription for prednisone and albuterol inhaler directed to follow up with his primary care doctor or return to emergency with any new or concerning symptoms. Case discussed with Dr. Roberts Was pt. sent in by a medical professional or institution? @ -Urgent care Did you speak to anyone other than the patient for history? @ -No Did you review nursing and triage notes? @ -Yes I agree Were old charts reviewed? @ -No Differential Diagnosis? Differential Dyspnea: Coronary syndrome, arrhythmia, asthma, COPD, pulmonary embolism, pneumonia, pneumothorax, pulmonary effusion, anemia, this is not meant to be an all- inclusive list. X-rays interpreted by me (1pt min.)? @ -Yes as above What testing was considered but not performed? (CT, X-rays, U/S, labs)? Why? @None What meds were considered but not given? Why? @ -Antibiotics are considered however this appears to be a COPD exacerbation related to viral illness and coronavirus infection, no fevers, no evidence of infiltrate, oxygen saturation 97% on room air lung sounds are clear Did you discuss the management of the patient with other professionals? @ -No Did you reconcile home meds? @ -No Was smoking cessation discussed for >3mins.? @ -No Was critical care preformed (if so, how long)? @ -No Were there social determinants of health that impacted care today? How? (Homelessness, low income, unemployed, alcoholism, drug addiction, transportation, low edu. Level, literacy, decrease access to med. care, senior care, rehab)? @ -None Was there de-escalation of care discussed even if they declined? (Discuss DNR or withdrawal of care, Hospice)? @ -No What co-morbidities impacted this encounter? (DM, HTN, Smoking, COPD, CAD, Cancer, CVA, Hep., AIDS, mental health diagnosis, sleep apnea, morbid obesity)? @ -Coronary artery disease, asthma, hypertension, hyperlipidemia Was patient admitted / discharged? @ -Discharged Undiagnosed new problem with uncertain prognosis? @ -[none] Drug Therapy requiring intensive monitoring for toxicity (Heparin, Nitro, Insulin, Cardizem)? @ -No Were any procedures done? @ -No Diagnosis/symptom? @ -COPD exacerbation, coronavirus Acute, or Chronic, or Acute on Chronic? @ -Acute Uncomplicated (without systemic symptoms) or Complicated (systemic symptoms)? @ -Uncomplicated Side effects of treatment? @ -[none] Exacerbation, Progression, or Severe Exacerbation] @ -[no] Poses a threat to life or bodily function? @ -[no] Disposition Clinical Impression: Coronavirus infection, COPD exacerbation Disposition: HOME SELF-CARE Condition: Good Instructions (If sedation given, give patient instructions): Coronavirus Disease 2019 (COVID-19), COPD (Chronic Obstructive Pulmonary Disease) (ED) Additional Instructions: Use the albuterol inhaler 1-2 puffs every 4-6 hours as needed. Take the prednisone as prescribed. Return to the emergency room with any new or concerning symptoms including chest pain or difficulty in breathing. Follow-up with your doctor next week. Prescriptions: predniSONE 50 mg PO DAILY #5 tab Albuterol Inhaler [Ventolin Hfa Inhaler] 1 - 2 puff INHALATION Q6H PRN #1 each PRN Reason: Dyspnea Is patient prescribed a controlled substance at d/c from ED?: No Referrals: Steve Hsieh DO [Primary Care Provider] - 1-2 days Time of Disposition: 18:24
[2022-08-30 18:20] VITALS: PULSE 79; RESP 18
[2022-08-30 19:00] VITALS: BP 142/76
== END 2022-08-30 19:21 | disposition home or self-care (01) ==
LOC: EC 15:35
DX: J44.1 Chronic obstructive pulmonary disease with (acute) exacerbation (principal); U07.1 COVID-19; I10 Essential (primary) hypertension; I25.10 Atherosclerotic heart disease of native coronary artery without angina pectoris; E78.5 Hyperlipidemia, unspecified; Z79.52 Long term (current) use of systemic steroids; Z79.82 Long term (current) use of aspirin; Z88.0 Allergy status to penicillin
CPT/HCPCS: 71046; 99283

== ENCOUNTER → 2023-03-19 | Outpatient (CLI) | payer MEDICARE, BC ==
--- NOTE | 2023-03-19 10:35 | MM ---
Reason for Exam: Clinical finding. Last mammogram was performed 2 year(s) and 2 month(s) ago. Prior Study Comparison: 02/15/2021 Bilateral Diagnostic Mammogram, [facility]. 02/15/2021 Left Diagnostic Ultrasound, [facility]. Tissue Density: The breast tissue is almost entirely fat. Findings: Analyzed By CAD. Slight interval increase in overall breast size compared to the 2020 exam. IV trace gynecomastia on the left similar to prior exam. No significant mass, suspicious microcalcification, or other discrete abnormality is seen. Prominent but benign-appearing lymph node noted in the left axilla. Overall Assessment: Incomplete: need additional imaging evaluation, BI-RAD 0 Management: Diagnostic Breast Ultrasound of the left breast. Electronically signed and approved by: Abilio Dexter M.D. Radiologist
--- NOTE | 2023-03-19 11:22 | USB ---
Reason for Exam: Clinical finding. Technique: Method: Whole Breast Handheld. Prior Study Comparison: 02/15/2021 Bilateral Diagnostic Mammogram, [facility]. Findings: The whole breast of the left breast, the axilla of the left breast and the retroareolar of the left breast were scanned. A complete US of all four quadrants of the breast , axilla, and retro-areolar region were reviewed. No solid or cystic masses are identified. No appreciable gynecomastia. Prominent but benign-appearing fatty lymph nodes noted in the left axilla as seen on mammogram. Overall Assessment: Benign, BI-RAD 2 Electronically signed and approved by: Abilio Dexter M.D. Radiologist
== END | disposition home or self-care (01) ==
LOC: RADMAMWWP 09:55
PROVIDERS: ATTEND Family Medicine
DX: N62 Hypertrophy of breast (principal)
CPT/HCPCS: 77066; 76641; G0279; 77062